=== PATIENT | female | born 1965 | race Caucasian/White ===

== ENCOUNTER → 2016-11-02 | Outpatient (CLI) | payer SELFPAY ==
[2015-11-12 03:17] VITALS: BP 143/84
--- NOTE | 2016-11-02 13:41 | CT ---
HISTORY: Screening. Study: Cardiac calcium scoring. Technique: Multiple axial images of the chest were obtained on a [address] from the main pulmonary artery to the base of the heart. Noncontrast evaluation of the heart was performed for calcium scoring with prospective gating. Findings: A total calcium score of 3 is observed which is between the 50th and 75th percentile for f emales between the ages of 50 and 54. This score implies minimal identifiable plaque with very unli roderick, less than 10%, risk of coronary artery disease. LM: 0 LAD: 0 LCX: 1 RCA: 2 Extracardiac findings: No pathologically enlarged lymphadenopathy can be observed. No significant pericardial effusion can be identified. The visualized portions of the lung parenchyma are unremarkable. No lytic or blast ic lesions can be identified within the visualized bony thorax. IMPRESSION: A total calcium score of 3 is observed which is between the 50th and 75th percentile for females bet ween the ages of 50 and 54. This score implies minimal identifiable plaque with very unlikely, less than 10%, risk of coronary artery disease. Reported By:
== END ==
LOC: RAD 10:28
PROVIDERS: ATTEND Obstetrics & Gynecology Obstetrics
DX: Z13.6 Encounter for screening for cardiovascular disorders (principal)